=== PATIENT | female | born 1985 | race American Indian/Alaskan Native ===

== ENCOUNTER 2016-06-01 16:09 | Emergency (ER) | payer MEDICAID ==
[2016-06-01] MEDS ORDERED: TYLENOL PO ONE (16:38)
[2016-06-01 17:18] LABS: Bacteria,Urine 1+ /HPF (Negative); Bilirubin,Urine NEG (Negative); Blood,Urine NEG (Negative); Ketones,Urine NEG (Negative); Leukocyte Esterase,Urine NEG (Negative); Mucus,Urine FEW /HPF; Nitrite,Urine NEG (Negative)
[2016-06-01 17:47] LABS: Anion Gap 18 mmol/L; Blood Urea Nitrogen 6 mg/dL (7-17); Calcium 9.4 mg/dL (8.4-10.2); Carbon Dioxide 23 mmol/L (22-30); Chloride 100.5 mmol/L (98-107); Glucose 101 mg/dL (65-100); Potassium 4.6 mmol/L (3.6-5.0); Sodium 137 mmol/L (137-145)
[2016-06-01 17:53] LABS: Basophils % (Auto) 0.5 % (0.0-1.8); Eosinophils % (Auto) 0.4 % (0.0-4.3); Hematocrit 40.9 % (30.3-42.9); Hemoglobin 13.1 gm/dl (10.1-14.3); Mean Corpuscular HGB Conc 32 % (30-34); Mean Corpuscular Hemoglobin 28 pg (28-32); Mean Corpuscular Volume 88 fl (79-97); Red Blood Count 4.64 M/mm3 (3.65-5.03); Red Cell Distribution Width 15.3 % (13.2-15.2); White Blood Count 17.8 K/mm3 (4.5-11.0)
[2016-06-01 17:57] LABS: Platelet Count 350 K/mm3 (140-440)
--- NOTE | 2016-06-01 19:39 | Emergency Department Report ---
HPI - General Chief Complaint: Sore Throat Time Seen by Provider: 06/01/16 19:24 - HPI HPI: She is a 30-year-old female who presents to ED complaining of fever and chills and left-sided flank pain time a couple of days. Patient states she had some dental surgery 05/12/1916 teeth removal. Patient states she is sore throat pain for the past 2 weeks since surgery. Patient had made some intermittent fever and urinary urgency. She denies nausea/vomiting/abdominal pains diarrhea/constipation/chest pain/ Dizziness or any other problems. ED Past Medical Hx - Past Medical History Additional medical history: OBESITY - Surgical History Hx Cholecystectomy: Yes Additional Surgical History: "ABDOMINAL SURGERY". TONSILLECTOMY - Social History Smoking Status: Light Tobacco Smoker Substance Use Type: Prescribed - Medications Home Medications: Home Medications Medication Instructions Recorded Confirmed Last Taken Type Ibuprofen [Motrin] 800 mg PO Q8HR PRN #40 tablet 06/01/16 Unknown Rx Sulfamethoxazole/Trimethoprim 1 each PO BID #6 tablet 06/01/16 Unknown Rx [Bactrim DS TAB] traMADol [Ultram 50 MG tab] 50 mg PO Q6HR PRN #20 tablet 06/01/16 Unknown Rx ED Review of Systems ROS: Stated complaint: THROAT/NOSE/CHEST PAINS Other details as noted in HPI Constitutional: denies: chills, fever Eyes: denies: eye pain, eye discharge, vision change ENT: throat pain. denies: ear pain, dental pain, hearing loss, epistaxis, congestion Respiratory: denies: cough, shortness of breath, wheezing Cardiovascular: denies: chest pain, palpitations Endocrine: no symptoms reported Gastrointestinal: denies: abdominal pain, nausea, vomiting, diarrhea, constipation, hematemesis Genitourinary: urgency. denies: dysuria, frequency, hematuria, discharge Musculoskeletal: myalgia. denies: back pain, joint swelling, arthralgia Skin: denies: rash, lesions, pruritus Neurological: denies: headache, weakness, numbness, paresthesias, confusion Psychiatric: denies: anxiety, depression Hematological/Lymphatic: denies: easy bleeding, easy bruising Physical Exam - Physical Exam Vital Signs: Vital Signs 06/01/16 06/01/16 16:20 16:41 Temperature 101.0 F H Pulse Rate 115 H Respiratory 17 17 Rate Blood Pressure 129/83 O2 Sat by Pulse 100 Oximetry Physical Exam: GENERAL: Alert and oriented x3, no apparent distress, Normal Gait, atraumatic. HEAD: Head is normocephalic and a-traumatic. EYES: Extra ocular muscles are intact. Pupils are equal, round, and reactive to light and accommodation. EARS: symetrical, atraumatic, non tender, gross auditory nml bilaterally. MOUTH:Mouth is well hydrated and without lesions. Tonsils nonerythematous or swollen, Uvula midline, Tongue not elevated. Mucous membranes are moist. Posterior pharynx clear, no exudate or lesions. Patent airways. No anterior cervical lymphadenopathy. Missing tooth #15 and 7 LUNGS: Symetrical with respiration, No wheezing, no rales or crackles, CTAB. HEART: S1, S2 present, regular rate and rhythm without murmur, no rubs, no gallops. ABDOMEN: No organomegaly was noted,Positive bowel sounds, soft, and non- distended. . Nontender to palpation on all Quadrants, Left CVA tenderness. EXTREMITIES/MUSCULOSKELETAL: No cyanosis, clubbing, rash, lesions or edema. Full ROM bilaterally. UE/LE Pulses 2+ bilaterally. LE and UE 5+ strength bilaterally NEUROLOGIC: No focal Deficit, Cranial nerves II through XII are grossly intact. No loss of sensation PSYCHIATRIC: Mood is congruent with affect, denies suicidal or homicidal ideations. SKIN: Warm and dry, No lesions, No ulceration or induration present. ED Course Vital Signs 06/01/16 06/01/16 16:20 16:41 Temperature 101.0 F H Pulse Rate 115 H Respiratory 17 17 Rate Blood Pressure 129/83 O2 Sat by Pulse 100 Oximetry ED Medical Decision Making - Lab Data Result diagrams: 06/01/16 17:12 06/01/16 17:12 - Medical Decision Making 30-year-old female presents with UTI/pyelonephritis ED course: CBC, CMP, UA, UPT are ordered. Rapid strep test ordered. Patient received Tylenol in triage CBC shows leukocytosis is, CMP BUN/creatinine slightly low. Urinalysis shows positive bacteria. Rapid strep test negative, cultures pending Discussed findings with patient. Patient received 1 L of normal saline, Toradol, and 250 mg of Rocephin IV. Patient still complaining of pain so 2 mg of IV morphine was given area. Patient status is returned to normal. Fever reduced, pulse reduced Scars with patient take antibiotics as prescribed. Discussed with patient follow-up with primary care physician. Discussed if worsening symptoms to return to ED otherwise follow-up. Patient feeling much better and can be discharged. - Differential Diagnosis 1. Cystitis 2. Acute pyelonephritis 3. Pharyngitis 4. UTI Critical care attestation.: If time is entered above; I have spent that time in minutes in the direct care of this critically ill patient, excluding procedure time. ED Disposition Clinical Impression: Pyelonephritis UTI (urinary tract infection) Qualifiers: Urinary tract infection type: acute pyelonephritis Qualified Code(s): N10 - Acute pyelonephritis Disposition: DISCHARGED TO HOME OR SELFCARE Is pt being admited?: No Does the pt Need Aspirin: No Condition: Stable Instructions: Urinary Tract Infection in Women (ED), Acute Pyelonephritis (ED) , Flank Pain (ED) Additional Instructions: Follow-up with her primary care physician. Take medications as discussed. Prescriptions: Ibuprofen [Motrin] 800 mg PO Q8HR PRN #40 tablet PRN Reason: Pain Sulfamethoxazole/Trimethoprim [Bactrim DS TAB] 1 each PO BID #6 tablet traMADol [Ultram 50 MG tab] 50 mg PO Q6HR PRN #20 tablet PRN Reason: Pain Referrals: PRIMARY CARE, [Primary Care Provider] - 3-5 Days HORACIO ALVARADO MD [Referring] - 3-5 Days [facility] [Outside] - 3-5 Days [facility] [Outside] - 3-5 Days [facility] [Outside] - 3-5 Days Forms: Work/School Release Form(ED) Time of Disposition: 21:31
[2016-06-01] MEDS ORDERED: XYLOCAINE 1% MPF 5 mL INFILTRATI ONE (20:11)
[2016-06-01] MEDS ORDERED: NACL 0.9% 1000 ML 1,000 ML IV ONE (20:11)
[2016-06-01] MEDS ORDERED: TORADOL IV ONE (20:11)
[2016-06-01 20:23] VITALS: BP 119/67
[2016-06-01] MEDS ORDERED: ROCEPHIN 250 MG in NACL 0.9% 50 ML IV ONE (21:00)
[2016-06-01] MEDS ORDERED: MORPHINE IV ONE (21:28)
== END 2016-06-01 22:54 | disposition home or self-care (01) ==
LOC: ED 16:09
DX: N10 Acute pyelonephritis (principal); F17.200 Nicotine dependence, unspecified, uncomplicated
CPT/HCPCS: 36415; 80048; 81001; 81025; 85025; 87116; 87430; 96365; 96375; 99283; J0696; J1885; J2270; J7030

== ENCOUNTER 2017-08-26 10:57 | Emergency (ER) | payer BC, MEDICAID ==
[2017-08-26 11:07] VITALS: BP 122/73
--- NOTE | 2017-08-26 11:57 | Emergency Department Report ---
ED Rash HPI - HPI Duration: 2 Days Location: Chest, Back, Upper Extremities, Lower Extremities Rash Symptoms: Yes Itching, No Facial Swelling, No Tongue/Oral Swelling, No Breathing Difficulties, No Choking Sensation, No Wheezing/Dyspnea, No Peeling, No Blistering, No Fever, No Lightheaded, No Malaise, No Myalgias Severity: mild Other History: This is a 32-year-old female nontoxic, well nourished in appearance, no acute signs of distress presents to the ED with c/o of rash 2 days. Patient stated that rash is itching with areas of circular with crusting. Patient denies any fever, chills, nausea, vomiting, chest pain short of breath. Patient denies any allergies or significant past medical history. <BLU ENGLAND - Last Filed: 08/26/17 11:48> <TRACEE MURILLO - Last Filed: 08/26/17 17:07> - HPI Chief Complaint: Allergic Reaction Stated Complaint: SPIDER BITE Time Seen by Provider: 08/26/17 11:36 ED Review of Systems ROS: Stated complaint: SPIDER BITE Other details as noted in HPI Constitutional: denies: chills, fever Eyes: denies: eye pain, eye discharge, vision change ENT: denies: ear pain, throat pain Respiratory: denies: cough, shortness of breath, wheezing Cardiovascular: denies: chest pain, palpitations Endocrine: no symptoms reported Gastrointestinal: denies: abdominal pain, nausea, diarrhea Genitourinary: denies: urgency, dysuria, discharge Musculoskeletal: denies: back pain, joint swelling, arthralgia Skin: rash. denies: lesions Neurological: denies: headache, weakness, paresthesias Psychiatric: denies: anxiety, depression Hematological/Lymphatic: denies: easy bleeding, easy bruising <BLU ENGLAND - Last Filed: 08/26/17 11:48> ROS: Stated complaint: SPIDER BITE Other details as noted in HPI <TRACEE MURILLO - Last Filed: 08/26/17 17:07> ED Past Medical Hx - Past Medical History Previous Medical History?: Yes Hx Headaches / Migraines: Yes Additional medical history: OBESITY, vaginal delivery x 3 - Surgical History Past Surgical History?: Yes Hx Cholecystectomy: Yes Additional Surgical History: "ABDOMINAL SURGERY". TONSILLECTOMY - Social History Smoking Status: Never Smoker Substance Use Type: Alcohol, Marijuana <BLU ENGLAND - Last Filed: 08/26/17 11:48> <TRACEE MURILLO - Last Filed: 08/26/17 17:07> - Medications Home Medications: Home Medications Medication Instructions Recorded Confirmed Last Taken Type Ibuprofen [Motrin] 800 mg PO Q8HR PRN #40 tablet 06/01/16 Unknown Rx Sulfamethoxazole/Trimethoprim 1 each PO BID #6 tablet 06/01/16 Unknown Rx [Bactrim DS TAB] traMADol [Ultram 50 MG tab] 50 mg PO Q6HR PRN #20 tablet 06/01/16 Unknown Rx Acetaminophen/Codeine [Tylenol 1 tab PO Q6H PRN #12 tab 12/25/16 Unknown Rx /Codeine # 3 tab] Sulfamethoxazole/Trimethoprim 1 each PO BID #14 tablet 12/25/16 Unknown Rx [Bactrim Ds Tablet] Clotrimazole 1% [Lotrimin 1%] 15 gm TP BID #1 tube 08/26/17 Unknown Rx Prednisone [predniSONE 10 mg 10 mg PO .TAPER #1 tab.ds.pk 08/26/17 Unknown Rx (6-Day Pack, 21 Tabs)] Rash Exam - Exam General: Vital signs noted. No distress. Alert and acting appropriately. HEENT: No Periorbital Edema, No Conjuctival Injection, No Chemosis, No Perioral Edema, No Tongue Edema, No Uvular Edema, No Compromised Airway, No Drooling Lungs: Yes Good Air Exchange (Normal Breath Sounds), No Wheezes, No Ronchi, No Stridor, No Cough, No Labored Respirations, No Retractions, No Use of Accessory Muscles, No Other Abnormal Lung Sounds Heart: Yes Regular, No Murmur Skin: Yes Other (small erythema circular with central crusting), No Urticarial Rash, No Maculopapular Rash, No Morbilliform rash, No Bulla(e), No Excoriations , No Weeping, No Tenderness, No Erythema, No Edema, No Encrustations Other: Positive: Abdomen Normal, Neurologic Normal, Musculoskeletal Normal <BLU ENGLAND - Last Filed: 08/26/17 11:48> - Exam General: Vital signs noted. No distress. Alert and acting appropriately. <TRACEE MURILLO - Last Filed: 08/26/17 17:07> ED Course Vital Signs 08/26/17 11:01 Temperature 98.7 F Pulse Rate 76 Respiratory 16 Rate Blood Pressure 122/73 O2 Sat by Pulse 97 Oximetry - Reevaluation(s) Reevaluation #1: 08/26/17 11:51 Patient is speaking in full sentences with no signs of distress noted. <BLU ENGLAND - Last Filed: 08/26/17 11:48> Vital Signs 08/26/17 11:01 Temperature 98.7 F Pulse Rate 76 Respiratory 16 Rate Blood Pressure 122/73 O2 Sat by Pulse 97 Oximetry <TRACEE MURILLO - Last Filed: 08/26/17 17:07> ED Medical Decision Making - Medical Decision Making I did not see this patient. I was available for consultation the entire time the patient was in the department. I have reviewed the GRAPHIC DESIGN MANAGER/PAs note and agree with the plan. <TRACEE MURILLO - Last Filed: 08/26/17 17:07> Critical care attestation.: If time is entered above; I have spent that time in minutes in the direct care of this critically ill patient, excluding procedure time. <BLU ENGLAND - Last Filed: 08/26/17 11:48> Critical care attestation.: If time is entered above; I have spent that time in minutes in the direct care of this critically ill patient, excluding procedure time. <TRACEE MURILLO - Last Filed: 08/26/17 17:07> ED Disposition Is pt being admited?: No Does the pt Need Aspirin: No <BLU ENGLAND - Last Filed: 08/26/17 11:48> <TRACEE MURILLO - Last Filed: 08/26/17 17:07> Disposition: DC-01 TO HOME OR SELFCARE Condition: Stable Instructions: Tinea Corporis (ED) Additional Instructions: Follow-up with a primary care doctor in 3-5 days or if symptoms worsen and continue return to emergency room as soon as possible. Prescriptions: Clotrimazole 1% [Lotrimin 1%] 15 gm TP BID #1 tube Prednisone [predniSONE 10 mg (6-Day Pack, 21 Tabs)] 10 mg PO .TAPER #1 tab.ds.pk Referrals: PRIMARY CARE, [Primary Care Provider] - 3-5 Days LISS ROSAS MD [Staff Physician] - 3-5 Days [facility] [Outside] - 3-5 Days [facility] [Outside] - 3-5 Days Forms: Work/School Release Form(ED)
== END 2017-08-26 12:16 | disposition home or self-care (01) ==
LOC: ED 10:57
DX: G43.909 Migraine, unspecified, not intractable, without status migrainosus (principal); R21 Rash and other nonspecific skin eruption; E66.9 Obesity, unspecified; F12.90 Cannabis use, unspecified, uncomplicated; Z90.49 Acquired absence of other specified parts of digestive tract; Z90.89 Acquired absence of other organs; W57.XXXA Bitten or stung by nonvenomous insect and other nonvenomous arthropods, initial encounter; Y93.89 Activity, other specified; Y99.8 Other external cause status; Y92.89 Other specified places as the place of occurrence of the external cause
CPT/HCPCS: 99282